=== PATIENT | female | born 1980 | race Caucasian/White ===

== ENCOUNTER 2016-09-22 01:38 | Emergency (ER) | payer OTHER ==
[~2016-09-22] VITALS: Ht 170.2 cm; Wt 73.3 kg
[~2016-09-22 01:38] MED LIST: ELAVIL25 MG PO; JUNEL FE 24 TA1 EACH PO; MICROGESTIN1 EAC1
[2016-09-22 02:47] LABS: HEMATOCRIT 37.7 % (36.0-46.0); MCH 30.6 PG (29.0-34.0); MCHC 35.5 G/DL (30.0-36.0); MCV 86.1 FL (83-99); MEAN PLAT.VOLUME 9.5 uM^3 (9.5-12.4); PLATELET COUNT 283 K/uL (156-360); RBC DIS.WIDTH-CV 12.6 % (11.8-14.6); RBC DIS.WIDTH-SD 38.5 % (39-53); RED BLOOD COUNT 4.38 M/uL (3.80-5.20)
[2016-09-22 02:51] LABS: WHITE BLOOD COUNT 17.2 K/uL (4.1-10.2)
[2016-09-22 02:55] LABS: CHLORIDE 102 mEq/L (99-109); POTASSIUM 3.3 mEq/L (3.7-5.4); SODIUM 133 mEq/L (136-147)
[2016-09-22 02:57] LABS: GLUCOSE 97 mg/dL (70-99)
[2016-09-22 02:58] LABS: ANION GAP 11 MEQ/L (2-14)
[2016-09-22 03:01] LABS: GFR ESTIMATE (CALCULATED) > 59 mL/min/
[2016-09-22 03:02] LABS: UREA NITROGEN (BUN) 7 mg/dL (9-23)
[2016-09-22 04:38] VITALS: BP 122/65
== END 2016-09-22 04:39 | disposition home or self-care (01) ==
LOC: EME 01:38
PROVIDERS: Emergency Medicine
DX: N93.9 Abnormal uterine and vaginal bleeding, unspecified (principal); D72.829 Elevated white blood cell count, unspecified; E87.1 Hypo-osmolality and hyponatremia; F17.200 Nicotine dependence, unspecified, uncomplicated
CPT/HCPCS: 80048; 85027; 99281; 99284

== ENCOUNTER 2017-11-21 07:25 | Inpatient (IN) | payer OTHER ==
[~2017-11-21] VITALS: Ht 170.2 cm; Wt 85.0 kg
[2017-11-21] VITALS (20 sets, daily range): BP systolic 132–184; BP diastolic 71–94
[2017-11-21 09:37] LABS: BASOPHIL (%) 0.4 % (0-1); BASOPHIL COUNT 0.1 K/uL (0-0.1); EOSINOPHIL (%) 1.4 % (0-5); EOSINOPHIL COUNT 0.2 K/uL (0-0.3); HEMATOCRIT 32.5 % (36.0-46.0); HEMOGLOBIN 10.8 G/DL (11.9-15.5); LYMPHOCYTE (%) 18.9 % (15-42); LYMPHOCYTE COUNT 2.2 K/uL (1.0-2.8); MCH 30.2 PG (29.0-34.0); MCHC 33.2 G/DL (30.0-36.0); MCV 90.8 FL (83-99); MONOCYTE (%) 9.5 % (3-12); MONOCYTE COUNT 1.1 K/uL (0-0.8); NEUTROPHIL (%) 68.8 % (45-76); NEUTROPHIL COUNT 8.1 K/uL (1.8-6.4); PLATELET COUNT 297 K/uL (156-360); RBC DIS.WIDTH-CV 13.2 % (11.8-14.6); RBC DIS.WIDTH-SD 43.2 % (39-53); RED BLOOD COUNT 3.58 M/uL (3.80-5.20); WHITE BLOOD COUNT 11.8 K/uL (4.1-10.2)
[2017-11-21 10:01] LABS: ALBUMIN 2.9 G/DL (3.2-4.8); ALKALINE PHOSPHATASE 151 IU/L (3-129); ALT (GPT) 13 IU/L (3-49); AST (GOT) 19 IU/L (2-34); CHLORIDE 106 MEQ/L (99-109); CREATININE 0.8 MG/DL (0.6-1.3); GFR ESTIMATE (CALCULATED) > 59 mL/min/; GLUCOSE 87 mg/dL (70-99); POTASSIUM 3.6 MEQ/L (3.7-5.4); SODIUM 136 MEQ/L (136-147); TOTAL BILIRUBIN 0.3 MG/DL (0.0-1.0); TOTAL PROTEIN 5.2 G/DL (6.4-8.3); UREA NITROGEN (BUN) 12 mg/dL (9-23)
[2017-11-21] MEDS ORDERED: FLINTSTONES M300 MCG PO (10:18)
[2017-11-21] MEDS ORDERED: HEPARIN SO5000 UNIT3 IV (10:18)
[2017-11-21 12:33] LABS: APPEARANCE CLOUDY ((CLEAR)); BILIRUBIN NEGATIVE; BLOOD MODERATE; COLOR YELLOW ((YELLOW)); GLUCOSE (STRIP) NEGATIVE; KETONES NEGATIVE; LEUKOCYTES LARGE; NITRITE NEGATIVE; PROTEIN (STRIP) NEGATIVE; UROBILINOGEN 0.2 MG/DL (0.2-1.0)
[2017-11-21 13:50] LABS: BENZODIAZEPINES, URINE SCREEN Negative (200 ng/mL); UR CREATININE CONCENTRATION 84.9 MG/DL
[2017-11-21 13:57] LABS: EPITHELIAL CELLS 1+ /HPF; RED BLOOD CELLS 0-5 /HPF (0-5)
[2017-11-21 13:59] LABS: BACTERIA RARE /HPF; HYALINE CASTS 0-5 /LPF; MUCUS NONE SEEN /LPF; UCUL ADDED? YES
[2017-11-21 14:00] LABS: AMORPHOUS URATES CRYSTALS 2+
[2017-11-22 06:44] LABS: BASOPHIL (%) 0.3 % (0-1); EOSINOPHIL (%) 0.6 % (0-5); EOSINOPHIL COUNT 0.1 K/uL (0-0.3); HEMATOCRIT 30.9 % (36.0-46.0); HEMOGLOBIN 10.6 G/DL (11.9-15.5); IMMATURE GRANULOCYTE (%) 0.6 % (0.0-0.7); LYMPHOCYTE (%) 19.6 % (15-42); LYMPHOCYTE COUNT 3.1 K/uL (1.0-2.8); MCH 30.8 PG (29.0-34.0); MCHC 34.3 G/DL (30.0-36.0); MCV 89.8 FL (83-99); MONOCYTE (%) 8.1 % (3-12); MONOCYTE COUNT 1.3 K/uL (0-0.8); NEUTROPHIL (%) 70.8 % (45-76); NEUTROPHIL COUNT 11.3 K/uL (1.8-6.4); PLATELET COUNT 264 K/uL (156-360); RBC DIS.WIDTH-CV 13.1 % (11.8-14.6); RBC DIS.WIDTH-SD 42.7 % (39-53); RED BLOOD COUNT 3.44 M/uL (3.80-5.20); WHITE BLOOD COUNT 15.9 K/uL (4.1-10.2)
[2017-11-22 07:38] VITALS: BP 159/79
[2017-11-22 10:14] VITALS: BP 157/81
[2017-11-22 11:23] VITALS: BP 146/90
[2017-11-22 14:57] VITALS: BP 146/83
[2017-11-22 16:25] VITALS: BP 140/83
[2017-11-23 07:21] VITALS: BP 157/90
[2017-11-23] MEDS ORDERED: LOVENOX40 MG/0.4 SC (09:08)
[2017-11-23] MEDS ORDERED: LABETALOL HCL200 MG PO (09:08)
[2017-11-23] MEDS ORDERED: IBUPROFEN800 MG PO (09:09)
[2017-11-23 09:10] VITALS: BP 131/80
[2017-11-23 11:20] VITALS: BP 140/86
[2017-11-23 12:38] VITALS: BP 146/81
== END 2017-11-23 14:28 | disposition home or self-care (01) | DRG 775 ==
LOC: LDRP-OP → 2WEST 07:26 → LDRP-OP 11:25 → 2WEST 18:56 → LDRP-OP 12-28 14:05
PROVIDERS: Advanced Practice Midwife
DX: O40.3XX0 Polyhydramnios, third trimester, not applicable or unspecified (principal); O09.523 Supervision of elderly multigravida, third trimester; O99.334 Smoking (tobacco) complicating childbirth; Z37.0 Single live birth; Z3A.39 39 weeks gestation of pregnancy; O13.4 Gestational [pregnancy-induced] hypertension without significant proteinuria, complicating childbirth; E66.3 Overweight; O99.213 Obesity complicating pregnancy, third trimester; Z86.718 Personal history of other venous thrombosis and embolism; F17.200 Nicotine dependence, unspecified, uncomplicated
CPT/HCPCS: 80053; 80306 90; 81003; 82570; 84156; 85025; 87086; J1650; J7120

== ENCOUNTER 2017-12-01 16:15 | Emergency (ER) | payer OTHER ==
[~2017-12-01] VITALS: Ht 170.2 cm; Wt 73.4 kg
[~2017-12-01 16:15] MED LIST changes: +FLINTSTONES M300 MCG PO; +HEPARIN SO5000 UNIT3 IV; +IBUPROFEN800 MG PO; +LABETALOL HCL200 MG PO; +LOVENOX40 MG/0.4 SC
[2017-12-01] MEDS ORDERED: KENALOG,ARISTOC15 GM TP (18:39)
[2017-12-01 18:42] VITALS: BP 120/81
== END 2017-12-01 18:43 | disposition home or self-care (01) ==
LOC: EME 16:15
DX: M79.602 Pain in left arm (principal); L25.9 Unspecified contact dermatitis, unspecified cause; I10 Essential (primary) hypertension; F17.200 Nicotine dependence, unspecified, uncomplicated; Z86.718 Personal history of other venous thrombosis and embolism
CPT/HCPCS: 93005; 93971; 99281; 99283